=== PATIENT | male | born 1980 | race Caucasian/White ===

== ENCOUNTER → 2020-01-24 | Outpatient (CLI) | payer OTHER ==
--- NOTE | 2020-01-24 14:10 | XR ---
First digit left hand HISTORY: Trauma 2 days prior and pain 2 views of the first digit left hand Bone mineralization, joint spaces and alignment are maintained. No radiopaque foreign body. IMPRESSION: No radiographic apparent fracture or dislocation, follow-up as indicated in 7-10 days to assess for fracture healing if occult fracture is suspected clinically.
== END | disposition home or self-care (01) ==
LOC: RADXRYALE 13:49
PROVIDERS: ATTEND Physician Assistant Medical
DX: S60.112A Contusion of left thumb with damage to nail, initial encounter (principal)

== ENCOUNTER 2020-08-30 09:02 | Day surgery (SDC) | payer OTHER ==
[2020-08-27 13:12] VITALS: BMI 26.7
[2020-08-30] MEDS ORDERED: LACTATED RINGERS 1,000 ML IV SCH (09:09)
[2020-08-30] MEDS ORDERED: LIDOCAINE 1% (10MG/ML) FOR IV START INTRADERMA ONE (09:24)
[2020-08-30 09:28] VITALS: RESP 16; TEMP 97.7
[2020-08-30] MEDS ORDERED: PROPOFOL 10 MG/ML 20 ML VIAL IV ONE (10:07)
[2020-08-30] MEDS ORDERED: fentaNYL (PF) 50 MCG/ML 2 ML AMP ONE (10:07)
[2020-08-30] MEDS ORDERED: MIDAZOLAM 2 MG/2 ML VIAL ONE (10:07)
--- NOTE | 2020-08-30 10:23 | P.PCN ---
Date of Procedure: 08/30/20 Procedure(s) Performed: BRIEF HISTORY: Patient is a 40-year-old pleasant white male scheduled for an elective colonoscopy as a part of screening for colorectal neoplasia. Has family history of colon polyps. PROCEDURE PERFORMED: Colonoscopy. PREOPERATIVE DIAGNOSIS: Screening for colon cancer and family history of colon polyps. IV sedation per Anesthesia. PROCEDURE: After informed consent was obtained, the patient, was brought into the endoscopy unit. IV sedation was administered by Anesthesia under continuous monitoring. Digital rectal examination was normal. Initially the Olympus CF-160 flexible video colonoscope was then inserted in the rectum, gradually advanced into the cecum without any difficulty. Careful examination was performed as the scope was gradually being withdrawn. Ileocecal valve and the appendiceal orifice were visualized and appeared normal. Prep was excellent. Mucosa of the cecum, ascending colon, transverse colon, descending colon, sigmoid colon, and rectum appeared normal. Retroflexion was performed in the rectum and no lesions were seen. The patient tolerated the procedure well. IMPRESSION: Normal-appearing colon from rectum to cecum no evidence of colorectal neoplasia. RECOMMENDATIONS: Findings of this examination were discussed with the patient as well as his family.. He was advised to have a repeat screening colonoscopy in 10 years.
[2020-08-30 10:52] VITALS: BP 117/68; PULSE 53
== END 2020-08-30 11:10 | disposition home or self-care (01) ==
LOC: ORWHC2ENDO 09:02
PROVIDERS: ATTEND Internal Medicine Gastroenterology
DX: Z12.11 Encounter for screening for malignant neoplasm of colon (principal); E78.5 Hyperlipidemia, unspecified; Z83.71 Family history of colonic polyps; Z79.899 Other long term (current) drug therapy
CPT/HCPCS: G0105; J2250; J3010; J2704